=== PATIENT | male | born 1995 | race Hispanic/Latino ===

== ENCOUNTER 2025-02-15 11:10 | Emergency (ER) | payer OTHER ==
[~2025-02-15] VITALS: Ht 172.7 cm; Wt 93.8 kg
[2025-02-15] MEDS ORDERED: NAPR-885 PO (11:35)
[2025-02-15 14:46] VITALS: BP 117/68; TEMP 97.4; O2SAT 98
== END 2025-02-15 14:49 | disposition home or self-care (01) ==
LOC: M ED 11:10
DX: S89.92XA Unspecified injury of left lower leg, initial encounter (principal); W18.42XA Slipping, tripping and stumbling without falling due to stepping into hole or opening, initial encounter; Y92.89 Other specified places as the place of occurrence of the external cause; Y93.89 Activity, other specified; Y99.1 Military activity